=== PATIENT | male | born 1985 | race Caucasian/White ===

== ENCOUNTER 2020-09-04 21:08 | Inpatient (IN) | payer MEDICAID ==
[~2020-09-04] VITALS: Ht 185.4 cm; Wt 180.5 kg
[2020-09-04 21:57] LABS: BASOPHILS # (AUTO) 0.1 X10'3 (0-0.2); BASOPHILS % (AUTO) 0.8 % (0-1); EOSINOPHILS # (AUTO) 0.1 X10'3 (0-0.9); EOSINOPHILS % (AUTO) 0.6 % (0-6); HEMATOCRIT 43.5 % (42.0-52.0); HEMOGLOBIN 15.1 g/dl (14.0-17.9); LYMPHOCYTES # (AUTO) 1.5 X10'3 (1.1-4.8); LYMPHOCYTES % (AUTO) 14.3 % (21-51); MEAN CORPUSCULAR HEMOGLOBIN 28.5 PG (27.0-31.0); MEAN CORPUSCULAR HGB CONC 34.7 g/dL (33.0-36.5); MEAN CORPUSCULAR VOLUME 82.1 FL (78-98); MEAN PLATELET VOLUME 7.3 FL (7.4-10.4); MONOCYTES # (AUTO) 0.8 X10'3 (0-0.9); MONOCYTES % (AUTO) 7.7 % (2-12); NEUTROPHILS # (AUTO) 8.1 X10'3 (1.8-7.7); NEUTROPHILS % (AUTO) 76.6 % (42-75); PLATELET COUNT 245 X10'3 (140-440); RED CELL DISTRIBUTION WIDTH 13.1 % (11.5-14.5); WHITE BLOOD COUNT 10.5 X10'3 (4.5-11.0)
[2020-09-04 21:58] LABS: CLARITY,URINE CLEAR (Clear); COLOR,URINE YELLOW (Yellow); GLUCOSE, URINE NEGATIVE (Neg); KETONES,URINE NEGATIVE (Neg); LEUKOCYTE ESTERASE ,URINE NEGATIVE (Neg); NITRITES, URINE NEGATIVE (Neg); OCCULT BLOOD,URINE NEGATIVE (Neg); PH,URINE 6.5 (4.8-8.0); PROTEIN,URINE NEGATIVE (Neg); UROBILINOGEN,URINE 0.2 E.U/dL (0.2-1.0)
[2020-09-04 22:03] LABS: UA COLLECTION TYPE CLN CATCH MIDSTREAM
[2020-09-04 22:08] LABS: ALANINE AMINOTRANSFERASE 42 U/L (12-78); ALBUMIN 4.1 G/DL (3.4-5.0); ALBUMIN/GLOBULIN RATIO 1.1 (1.1-1.5); ALKALINE PHOSPHATASE 60 IU/L (46-116); ANION GAP 7 (8-16); ASPARTATE AMINO TRANSFERASE 17 U/L (10-37); BILIRUBIN,TOTAL 0.5 MG/DL (0.1-1.0); BLOOD UREA NITROGEN 10 MG/DL (7-18); BUN/CREATININE RATIO 9.9 (5.4-32.0); CALCIUM 9.1 MG/DL (8.5-10.1); CHLORIDE 102 MMOL/L (99-107); CREATININE 1.01 MG/DL (0.60-1.10); GLUCOSE 98 MG/DL (70-104); LIPASE 92 U/L (73-393); SODIUM 137 MMOL/L (135-145); eGFR 84 ML/MIN
[2020-09-05] MEDS ORDERED: ketorolac trometh. 30mg/ml inj. IM ONE (02:25)
[2020-09-05] MEDS ORDERED: HYDROcodone/acetaminophen 10/325mg tab PO ONE (02:25)
[2020-09-05] MEDS ORDERED: metroNIDAZOLE-Flagyl 500mg/NS 100 ML IV STA (02:47)
[2020-09-05] MEDS ORDERED: levoFLOXACIN-Levaquin 750MG/D5 150 ML IV ONE (02:50)
[2020-09-05] MEDS ORDERED: RIVA20TA PO (03:22)
[2020-09-05] MEDS ORDERED: ROSU20TA2 PO (03:22)
[2020-09-05] MEDS ORDERED: acetaminophen 650mg rectal suppository RC PRN (04:25)
[2020-09-05] MEDS ORDERED: diphenhydrAMINE 25mg capsule PO PRN (04:25)
[2020-09-05] MEDS ORDERED: acetaminophen 325mg tablet PO PRN ×2 (04:25)
[2020-09-05] MEDS ORDERED: diphenhydrAMINE 50 mg/ml inj IV PRN (04:25)
[2020-09-05] MEDS ORDERED: bisacodyl 10mg suppository rectal RC PRN (04:25)
[2020-09-05] MEDS ORDERED: magnesium hydroxide 30ml (MOM) UD suspension PO PRN (04:25)
[2020-09-05] MEDS ORDERED: HYDROmorphone inj. 0.5 MG/0.5 ML DISP.SYRIN IV PRN (04:25)
[2020-09-05] MEDS ORDERED: morphine 2 MG/ML inj. syringe IV PRN (04:25)
[2020-09-05] MEDS ORDERED: HYDROcodone/acetaminophen 10/325mg tab PO PRN (04:25)
[2020-09-05] MEDS ORDERED: ondansetron 4mg rapidly disintigrating tab PO PRN (04:25)
[2020-09-05] MEDS ORDERED: mag hydrox/Alum hydrox/simeth 30ml oral suspension PO PRN (04:25)
--- NOTE | 2020-09-05 05:09 | NUR ---
Patient resting comfortably on gurney, pending admission
--- NOTE | 2020-09-05 06:53 | NUR ---
Patient in room ED 6. I have received report from SKYLER Casarez and had the opportunity to ask questions and assume patient care.
[2020-09-05] MEDS: normal saline 1000ml 1,000 ML IV SCH ×3 (06:54→23:34)
[2020-09-05 07:00] VITALS: BP 148/82
--- NOTE | 2020-09-05 07:27 | NUR ---
Pt sent up by ER staff via wheelchair. Able to transfer with minimal assist to bed. Vital signs obtained. Physical assessment completed, 2RN skin check completed.
[2020-09-05] MEDS: docusate sod 100mg capsule PO SCH ×2 (07:48→19:32)
[2020-09-05] MEDS: atorvastatin 20mg tablet PO SCH (07:48)
[2020-09-05] MEDS: heparin, porcine 5000 units/ml vial SQ SCH ×3 (07:49→23:39)
[2020-09-05] MEDS: pantoprazole 40 MG vial IV SCH (07:49)
[2020-09-05] MEDS: HYDROcodone/acetaminophen 5mg/325mg tablet PO PRN ×3 (07:52→23:34)
[2020-09-05 07:57] LABS: HEMOGLOBIN A1C 5.7 % (4.5-6.2)
[2020-09-05 08:00] LABS: MAGNESIUM 2.1 MG/DL (1.5-2.4)
[2020-09-05] MEDS ORDERED: magnesium Cl slow-release 64mg tablet PO PRN (08:00)
[2020-09-05] MEDS ORDERED: potassium Cl 20 mEq SR tablet PO PRN ×2 (08:00)
[2020-09-05] MEDS ORDERED: potassium Cl 40MEQ/1/2NS 520ml 520 ML IV PRN (08:00)
[2020-09-05] MEDS ORDERED: magnesium 4gm in 100ml NS 100 ML IV PRN (08:00)
[2020-09-05] MEDS: ondansetron/PF 4mg/2ml inj IV PRN (08:54)
[2020-09-05] MEDS: piperacillin/tazo 3.375gm/50ml 50 ML IV SCH ×3 (08:58→23:46)
[2020-09-05] MEDS: K and/or MAG REPLACEMENT MC SCH ×2 (08:58→19:28)
[2020-09-05] MEDS: morphine 2 MG/ML inj. syringe IV PRN (09:05)
[2020-09-05 11:00] VITALS: BP 131/74
--- NOTE | 2020-09-05 15:28 | NUR ---
Nutrition Consult "Calorie Count": Per MD note calorie count for ordered for "calorie counting and restriction." Likely consult placed r/t pt BMI 39. Pt admit DX localized sigmoid diverticulitis w/ perforation currently NPO w/ ice chips per EMR. Excessive kcal restriction not indicated at this time given acute care increased needs and not appropriate w/ pt NPO status. Addendum: 09/05/20 at [address] Amended: Links added.
--- NOTE | 2020-09-05 16:40 | NUR ---
Brother at bedside. Will take wallet and clothes home to wash for him to wear when discharged.
[2020-09-05 18:00] VITALS: BP 145/86
--- NOTE | 2020-09-05 18:15 | NUR ---
Patient in room [facility]. I have received report from Blanka HOLLAND and Denia HOLLAND and had the opportunity to ask questions and assume patient care.
--- NOTE | 2020-09-05 18:16 | NUR ---
Problems reprioritized. Patient report given, questions answered & plan of care reviewed with SKYLER Boucher.
[2020-09-05] MEDS: lactobacillus rhamnosus 10,000 MMU CELLS/CAPSULE PO SCH (19:32)
[2020-09-05] MEDS ORDERED: temazepam 15mg capsule PO PRN (21:00)
[2020-09-06 00:20] VITALS: BP 144/80
[2020-09-06 05:59] LABS: BASOPHILS % (AUTO) 0.4 % (0-1); EOSINOPHILS # (AUTO) 0.1 X10'3 (0-0.9); HEMATOCRIT 42.5 % (42.0-52.0); HEMOGLOBIN 14.4 g/dl (14.0-17.9); LYMPHOCYTES # (AUTO) 1.5 X10'3 (1.1-4.8); LYMPHOCYTES % (AUTO) 17.3 % (21-51); MEAN CORPUSCULAR HEMOGLOBIN 28.4 PG (27.0-31.0); MEAN CORPUSCULAR HGB CONC 33.9 g/dL (33.0-36.5); MEAN CORPUSCULAR VOLUME 83.9 FL (78-98); MEAN PLATELET VOLUME 7.4 FL (7.4-10.4); MONOCYTES # (AUTO) 0.7 X10'3 (0-0.9); MONOCYTES % (AUTO) 8.3 % (2-12); NEUTROPHILS # (AUTO) 6.3 X10'3 (1.8-7.7); PLATELET COUNT 233 X10'3 (140-440); RED BLOOD COUNT 5.07 X10'6 (4.70-6.10); WHITE BLOOD COUNT 8.7 X10'3 (4.5-11.0)
[2020-09-06 06:12] LABS: ALANINE AMINOTRANSFERASE 34 U/L (12-78); ALBUMIN 3.3 G/DL (3.4-5.0); ALBUMIN/GLOBULIN RATIO 0.8 (1.1-1.5); ALKALINE PHOSPHATASE 55 IU/L (46-116); ANION GAP 11 (8-16); ASPARTATE AMINO TRANSFERASE 10 U/L (10-37); BILIRUBIN,TOTAL 0.9 MG/DL (0.1-1.0); BLOOD UREA NITROGEN 9 MG/DL (7-18); BUN/CREATININE RATIO 8.3 (5.4-32.0); CALCIUM 8.6 MG/DL (8.5-10.1); CHLORIDE 105 MMOL/L (99-107); CHOL/HDL RATIO 2.6 (0.00-4.99); CHOLESTEROL 97 MG/DL (0-200); CREATININE 1.09 MG/DL (0.60-1.10); GLUCOSE 97 MG/DL (70-104); HDL CHOLESTEROL 37 MG/DL (35-60); LDL CHOLESTEROL 44 MG/DL (50-100); POTASSIUM 3.7 MMOL/L (3.5-5.1); SODIUM 142 MMOL/L (135-145); TOTAL CARBON DIOXIDE 26.3 MMOL/L (24-32); TOTAL PROTEIN 7.4 G/DL (6.4-8.2); TRIGLYCERIDES 81 MG/DL (20-135); eGFR 77 ML/MIN
--- NOTE | 2020-09-06 06:17 | NUR ---
Patient in room [facility]. I have received report from SKYLER Boucher and had the opportunity to ask questions and assume patient care.
--- NOTE | 2020-09-06 06:40 | NUR ---
Problems reprioritized. Patient report given, questions answered & plan of care reviewed with Blanka HOLLAND and Denia HOLLAND.
[2020-09-06] MEDS: HYDROcodone/acetaminophen 5mg/325mg tablet PO PRN (06:42)
[2020-09-06 06:46] VITALS: BP 148/90
[2020-09-06] MEDS: piperacillin/tazo 3.375gm/50ml 50 ML IV SCH ×3 (07:07→23:57)
[2020-09-06] MEDS: lactobacillus rhamnosus 10,000 MMU CELLS/CAPSULE PO SCH ×2 (07:07→19:45)
[2020-09-06] MEDS: atorvastatin 20mg tablet PO SCH (07:07)
[2020-09-06] MEDS: pantoprazole 40 MG vial IV SCH (07:08)
[2020-09-06] MEDS: docusate sod 100mg capsule PO SCH ×2 (07:09→19:45)
[2020-09-06] MEDS: heparin, porcine 5000 units/ml vial SQ SCH ×2 (07:09→15:05)
[2020-09-06] MEDS: K and/or MAG REPLACEMENT MC SCH ×2 (07:12→19:46)
[2020-09-06 11:00] VITALS: BP 153/53
[2020-09-06] MEDS: normal saline 1000ml 1,000 ML IV SCH ×2 (11:11→19:39)
[2020-09-06] MEDS: ondansetron/PF 4mg/2ml inj IV PRN (14:54)
[2020-09-06] MEDS ORDERED: rivaroxaban 20mg tablet PO ONE (15:15)
--- NOTE | 2020-09-06 16:49 | NUR ---
Pt had a loose stool today. Advanced pt diet to clear liquid diet.
--- NOTE | 2020-09-06 18:18 | NUR ---
Patient in room [facility]. I have received report from SKYLER Martinez and had the opportunity to ask questions and assume patient care.
--- NOTE | 2020-09-06 18:20 | NUR ---
Problems reprioritized. Patient report given, questions answered & plan of care reviewed with SKYLER Martinez.
[2020-09-06 20:00] VITALS: BP 158/93
[2020-09-07 06:12] LABS: BASOPHILS # (AUTO) 0.1 X10'3 (0-0.2); BASOPHILS % (AUTO) 0.6 % (0-1); EOSINOPHILS # (AUTO) 0.2 X10'3 (0-0.9); EOSINOPHILS % (AUTO) 2.1 % (0-6); HEMATOCRIT 39.1 % (42.0-52.0); HEMOGLOBIN 13.3 g/dl (14.0-17.9); LYMPHOCYTES # (AUTO) 1.4 X10'3 (1.1-4.8); MEAN CORPUSCULAR HEMOGLOBIN 28.2 PG (27.0-31.0); MEAN CORPUSCULAR VOLUME 82.9 FL (78-98); MEAN PLATELET VOLUME 7.6 FL (7.4-10.4); MONOCYTES # (AUTO) 0.7 X10'3 (0-0.9); MONOCYTES % (AUTO) 8.8 % (2-12); NEUTROPHILS # (AUTO) 5.5 X10'3 (1.8-7.7); NEUTROPHILS % (AUTO) 70.5 % (42-75); PLATELET COUNT 216 X10'3 (140-440); RED BLOOD COUNT 4.72 X10'6 (4.70-6.10); RED CELL DISTRIBUTION WIDTH 12.9 % (11.5-14.5); WHITE BLOOD COUNT 7.8 X10'3 (4.5-11.0)
[2020-09-07 06:13] LABS: ALANINE AMINOTRANSFERASE 19 U/L (12-78); ALBUMIN 2.9 G/DL (3.4-5.0); ALBUMIN/GLOBULIN RATIO 0.8 (1.1-1.5); ALKALINE PHOSPHATASE 48 IU/L (46-116); ANION GAP 9 (8-16); ASPARTATE AMINO TRANSFERASE 11 U/L (10-37); BILIRUBIN,TOTAL 0.6 MG/DL (0.1-1.0); BLOOD UREA NITROGEN 8 MG/DL (7-18); BUN/CREATININE RATIO 8.8 (5.4-32.0); CALCIUM 8.3 MG/DL (8.5-10.1); CHLORIDE 105 MMOL/L (99-107); CREATININE 0.91 MG/DL (0.60-1.10); GLUCOSE 91 MG/DL (70-104); POTASSIUM 3.9 MMOL/L (3.5-5.1); SODIUM 139 MMOL/L (135-145); TOTAL CARBON DIOXIDE 24.6 MMOL/L (24-32); TOTAL PROTEIN 6.7 G/DL (6.4-8.2); eGFR > 90 ML/MIN
--- NOTE | 2020-09-07 06:30 | NUR ---
Patient in room [facility]. I have received report from SKYLER Martinez and had the opportunity to ask questions and assume patient care.
--- NOTE | 2020-09-07 06:50 | NUR ---
Problems reprioritized. Patient report given, questions answered & plan of care reviewed with Sarah. Addendum: 09/07/20 at 0651 by Sukhi Parra RN Amended: Links added.
[2020-09-07 07:00] VITALS: BP 129/72
[2020-09-07] MEDS: K and/or MAG REPLACEMENT MC SCH ×2 (08:00→20:00)
[2020-09-07] MEDS: docusate sod 100mg capsule PO SCH ×2 (08:00→20:00)
[2020-09-07] MEDS: piperacillin/tazo 3.375gm/50ml 50 ML IV SCH ×2 (08:43→17:00)
[2020-09-07] MEDS: lactobacillus rhamnosus 10,000 MMU CELLS/CAPSULE PO SCH ×2 (08:43→20:38)
[2020-09-07] MEDS: atorvastatin 20mg tablet PO SCH (08:43)
[2020-09-07] MEDS: normal saline 1000ml 1,000 ML IV SCH ×3 (08:44→17:03)
[2020-09-07] MEDS: pantoprazole 40mg Tablet.DR PO SCH (08:45)
[2020-09-07] MEDS: HYDROcodone/acetaminophen 5mg/325mg tablet PO PRN ×2 (08:51→19:04)
[2020-09-07] MEDS: rivaroxaban 20mg tablet PO SCH (08:53)
[2020-09-07 11:00] VITALS: BP 124/58
--- NOTE | 2020-09-07 18:36 | NUR ---
Problems reprioritized. Patient report given, questions answered & plan of care reviewed with SKYLER Poole.
[2020-09-07 20:00] VITALS: BP 160/84
[2020-09-08] VITALS: BP 137/72
[2020-09-08] MEDS: HYDROcodone/acetaminophen 5mg/325mg tablet PO PRN ×2 (00:14→19:49)
[2020-09-08] MEDS: piperacillin/tazo 3.375gm/50ml 50 ML IV SCH ×2 (00:15→07:50)
[2020-09-08] MEDS: normal saline 1000ml 1,000 ML IV SCH ×2 (05:12→15:24)
[2020-09-08 06:09] LABS: BASOPHILS % (AUTO) 0.4 % (0-1); EOSINOPHILS # (AUTO) 0.2 X10'3 (0-0.9); EOSINOPHILS % (AUTO) 2.3 % (0-6); HEMATOCRIT 40.4 % (42.0-52.0); HEMOGLOBIN 13.9 g/dl (14.0-17.9); LYMPHOCYTES # (AUTO) 1.3 X10'3 (1.1-4.8); LYMPHOCYTES % (AUTO) 17.4 % (21-51); MEAN CORPUSCULAR HEMOGLOBIN 28.5 PG (27.0-31.0); MEAN CORPUSCULAR HGB CONC 34.3 g/dL (33.0-36.5); MEAN CORPUSCULAR VOLUME 83.1 FL (78-98); MEAN PLATELET VOLUME 7.3 FL (7.4-10.4); MONOCYTES # (AUTO) 0.6 X10'3 (0-0.9); MONOCYTES % (AUTO) 7.7 % (2-12); NEUTROPHILS # (AUTO) 5.5 X10'3 (1.8-7.7); NEUTROPHILS % (AUTO) 72.2 % (42-75); PLATELET COUNT 260 X10'3 (140-440); RED BLOOD COUNT 4.86 X10'6 (4.70-6.10); WHITE BLOOD COUNT 7.7 X10'3 (4.5-11.0)
[2020-09-08 06:34] LABS: ALANINE AMINOTRANSFERASE 28 U/L (12-78); ALBUMIN/GLOBULIN RATIO 0.7 (1.1-1.5); ALKALINE PHOSPHATASE 57 IU/L (46-116); ANION GAP 11 (8-16); ASPARTATE AMINO TRANSFERASE 14 U/L (10-37); BILIRUBIN,TOTAL 0.5 MG/DL (0.1-1.0); BLOOD UREA NITROGEN 7 MG/DL (7-18); BUN/CREATININE RATIO 7.5 (5.4-32.0); CALCIUM 8.5 MG/DL (8.5-10.1); CHLORIDE 104 MMOL/L (99-107); CREATININE 0.93 MG/DL (0.60-1.10); GLUCOSE 84 MG/DL (70-104); POTASSIUM 3.9 MMOL/L (3.5-5.1); SODIUM 141 MMOL/L (135-145); TOTAL PROTEIN 7.3 G/DL (6.4-8.2); eGFR > 90 ML/MIN
[2020-09-08 06:44] VITALS: BP 132/64
[2020-09-08] MEDS ORDERED: LEVO500T89 PO (07:43)
[2020-09-08] MEDS ORDERED: METR500T PO (07:44)
[2020-09-08] MEDS: atorvastatin 20mg tablet PO SCH (07:52)
[2020-09-08] MEDS: rivaroxaban 20mg tablet PO SCH (07:52)
[2020-09-08] MEDS: pantoprazole 40mg Tablet.DR PO SCH (07:52)
[2020-09-08] MEDS: lactobacillus rhamnosus 10,000 MMU CELLS/CAPSULE PO SCH ×2 (07:52→19:48)
[2020-09-08] MEDS: K and/or MAG REPLACEMENT MC SCH ×2 (08:00→20:00)
[2020-09-08] MEDS: docusate sod 100mg capsule PO SCH ×2 (08:00→19:22)
--- NOTE | 2020-09-08 08:05 | NUR ---
PAGER ID: [phone] MESSAGE: Ceci-Surg [id number] Re: Mathew LlanesA patients pharmacy in computer,. have not seen Bowel movement put Hat in bathroom for sample
--- NOTE | 2020-09-08 10:44 | NUR ---
PAGER ID: [phone] MESSAGE: Ceci Surg [id number] Re: Mathew Llanes A Patient states there is no way he can go home on Tylenol the pain is to bad can you please call
[2020-09-08 11:00] VITALS: BP 150/93
--- NOTE | 2020-09-08 11:45 | NUR ---
PAGER ID: [phone] MESSAGE: Ceci-Surg [id number] Re: Mathew had a liquid stool. automotive electrician helper sent sample do you want us to run a cdiff or discard please call
--- NOTE | 2020-09-08 16:11 | NUR ---
PAGER ID: [phone] MESSAGE: Ceci-Surg [id number] Re: [id number] Mathew please call re: Dr Marquez wants Dr Brown to see patient before discharge. Awaiting Dr Brown
[2020-09-08 16:23] VITALS: BP 148/100
[2020-09-08 18:00] VITALS: BP 170/88
--- NOTE | 2020-09-08 18:30 | NUR ---
Patient in room [facility]. I have received report from Ceci HOLLAND and had the opportunity to ask questions and assume patient care.
--- NOTE | 2020-09-08 18:45 | NUR ---
Problems reprioritized. Patient report given, questions answered & plan of care reviewed with Deborah HOLLAND.
[2020-09-08] MEDS: ringers solution, lacted 1,000 ML IV SCH (21:21)
[2020-09-08 23:31] VITALS: BP 159/80
[2020-09-08] MEDS: piperacillin/tazo 4.5gm/100ml 100 ML IV SCH (23:42)
[2020-09-09] MEDS: morphine 2 MG/ML inj. syringe IV PRN ×2 (00:34→08:45)
[2020-09-09] MEDS: ringers solution, lacted 1,000 ML IV SCH ×3 (04:05→17:11)
--- NOTE | 2020-09-09 06:21 | NUR ---
Problems reprioritized. Patient report given, questions answered & plan of care reviewed with Sarah HOLLAND.
--- NOTE | 2020-09-09 06:49 | NUR ---
Patient in room [facility]. I have received report from SKYLER Cabrera and had the opportunity to ask questions and assume patient care.
[2020-09-09 07:00] VITALS: BP 139/75
[2020-09-09] MEDS: K and/or MAG REPLACEMENT MC SCH ×2 (08:00→20:00)
[2020-09-09] MEDS: docusate sod 100mg capsule PO SCH ×2 (08:00→20:00)
[2020-09-09 08:29] LABS: BASOPHILS # (AUTO) 0.1 X10'3 (0-0.2); BASOPHILS % (AUTO) 0.6 % (0-1); EOSINOPHILS # (AUTO) 0.1 X10'3 (0-0.9); EOSINOPHILS % (AUTO) 1.4 % (0-6); HEMATOCRIT 40.6 % (42.0-52.0); HEMOGLOBIN 14.2 g/dl (14.0-17.9); LYMPHOCYTES # (AUTO) 1.2 X10'3 (1.1-4.8); LYMPHOCYTES % (AUTO) 12.7 % (21-51); MEAN CORPUSCULAR HEMOGLOBIN 28.6 PG (27.0-31.0); MEAN CORPUSCULAR HGB CONC 34.9 g/dL (33.0-36.5); MEAN CORPUSCULAR VOLUME 81.9 FL (78-98); MEAN PLATELET VOLUME 6.8 FL (7.4-10.4); MONOCYTES # (AUTO) 0.7 X10'3 (0-0.9); MONOCYTES % (AUTO) 7.6 % (2-12); NEUTROPHILS # (AUTO) 7.2 X10'3 (1.8-7.7); NEUTROPHILS % (AUTO) 77.7 % (42-75); PLATELET COUNT 284 X10'3 (140-440); RED BLOOD COUNT 4.96 X10'6 (4.70-6.10); RED CELL DISTRIBUTION WIDTH 12.9 % (11.5-14.5); WHITE BLOOD COUNT 9.2 X10'3 (4.5-11.0)
[2020-09-09] MEDS: pantoprazole 40mg Tablet.DR PO SCH (08:31)
[2020-09-09] MEDS: rivaroxaban 20mg tablet PO SCH (08:32)
[2020-09-09] MEDS: piperacillin/tazo 4.5gm/100ml 100 ML IV SCH (08:32)
[2020-09-09] MEDS: lactobacillus rhamnosus 10,000 MMU CELLS/CAPSULE PO SCH ×2 (08:32→21:25)
[2020-09-09] MEDS: atorvastatin 20mg tablet PO SCH (08:32)
[2020-09-09 08:59] LABS: ALANINE AMINOTRANSFERASE 35 U/L (12-78); ALBUMIN 3.2 G/DL (3.4-5.0); ALBUMIN/GLOBULIN RATIO 0.7 (1.1-1.5); ALKALINE PHOSPHATASE 54 IU/L (46-116); ANION GAP 12 (8-16); ASPARTATE AMINO TRANSFERASE 22 U/L (10-37); BILIRUBIN,TOTAL 0.5 MG/DL (0.1-1.0); BLOOD UREA NITROGEN 5 MG/DL (7-18); BUN/CREATININE RATIO 5.7 (5.4-32.0); CALCIUM 8.8 MG/DL (8.5-10.1); CHLORIDE 101 MMOL/L (99-107); CREATININE 0.87 MG/DL (0.60-1.10); GLUCOSE 106 MG/DL (70-104); POTASSIUM 3.5 MMOL/L (3.5-5.1); SODIUM 138 MMOL/L (135-145); TOTAL PROTEIN 7.7 G/DL (6.4-8.2); eGFR > 90 ML/MIN
[2020-09-09 11:00] VITALS: BP 143/93
[2020-09-09] MEDS: levoFLOXACIN-Levaquin 500mg/D5 100 ML IV SCH (11:22)
[2020-09-09] MEDS: metroNIDAZOLE-Flagyl 500mg/NS 100 ML IV SCH (17:11)
--- NOTE | 2020-09-09 18:57 | NUR ---
Problems reprioritized. Patient report given, questions answered & plan of care reviewed with edwin RN.
[2020-09-09 19:30] VITALS: BP 153/90
[2020-09-10] VITALS: BP 144/71
[2020-09-10] MEDS: ringers solution, lacted 1,000 ML IV SCH ×3 (00:13→12:45)
[2020-09-10] MEDS: metroNIDAZOLE-Flagyl 500mg/NS 100 ML IV SCH ×2 (00:13→09:46)
[2020-09-10 06:23] LABS: ALANINE AMINOTRANSFERASE 38 U/L (12-78); ALBUMIN 2.7 G/DL (3.4-5.0); ALBUMIN/GLOBULIN RATIO 0.6 (1.1-1.5); ALKALINE PHOSPHATASE 48 IU/L (46-116); ANION GAP 9 (8-16); ASPARTATE AMINO TRANSFERASE 22 U/L (10-37); BILIRUBIN,TOTAL 0.3 MG/DL (0.1-1.0); BLOOD UREA NITROGEN 4 MG/DL (7-18); BUN/CREATININE RATIO 4.1 (5.4-32.0); CALCIUM 8.8 MG/DL (8.5-10.1); CHLORIDE 105 MMOL/L (99-107); CREATININE 0.98 MG/DL (0.60-1.10); GLUCOSE 100 MG/DL (70-104); POTASSIUM 3.8 MMOL/L (3.5-5.1); SODIUM 144 MMOL/L (135-145); TOTAL CARBON DIOXIDE 30.5 MMOL/L (24-32); TOTAL PROTEIN 6.9 G/DL (6.4-8.2); eGFR 87 ML/MIN
[2020-09-10 06:46] LABS: BASOPHILS % (AUTO) 0.5 % (0-1); EOSINOPHILS # (AUTO) 0.2 X10'3 (0-0.9); EOSINOPHILS % (AUTO) 2.5 % (0-6); HEMATOCRIT 38.8 % (42.0-52.0); HEMOGLOBIN 13.2 g/dl (14.0-17.9); LYMPHOCYTES # (AUTO) 1.6 X10'3 (1.1-4.8); LYMPHOCYTES % (AUTO) 18.8 % (21-51); MEAN CORPUSCULAR HEMOGLOBIN 28.3 PG (27.0-31.0); MEAN CORPUSCULAR HGB CONC 34.2 g/dL (33.0-36.5); MEAN CORPUSCULAR VOLUME 82.9 FL (78-98); MEAN PLATELET VOLUME 7.3 FL (7.4-10.4); MONOCYTES # (AUTO) 0.7 X10'3 (0-0.9); MONOCYTES % (AUTO) 8.5 % (2-12); NEUTROPHILS # (AUTO) 5.8 X10'3 (1.8-7.7); NEUTROPHILS % (AUTO) 69.7 % (42-75); PLATELET COUNT 271 X10'3 (140-440); RED BLOOD COUNT 4.67 X10'6 (4.70-6.10); RED CELL DISTRIBUTION WIDTH 12.9 % (11.5-14.5); WHITE BLOOD COUNT 8.3 X10'3 (4.5-11.0)
--- NOTE | 2020-09-10 07:00 | NUR ---
Patient in room [facility]. I have received report from Pat RN and had the opportunity to ask questions and assume patient care.
[2020-09-10 08:00] VITALS: BP 142/81
[2020-09-10] MEDS: K and/or MAG REPLACEMENT MC SCH (08:00)
[2020-09-10] MEDS: pantoprazole 40mg Tablet.DR PO SCH (09:45)
[2020-09-10] MEDS: docusate sod 100mg capsule PO SCH (09:45)
[2020-09-10] MEDS: lactobacillus rhamnosus 10,000 MMU CELLS/CAPSULE PO SCH (09:45)
[2020-09-10] MEDS: rivaroxaban 20mg tablet PO SCH (09:45)
[2020-09-10] MEDS: atorvastatin 20mg tablet PO SCH (09:46)
[2020-09-10] MEDS: levoFLOXACIN-Levaquin 500mg/D5 100 ML IV SCH (09:47)
[2020-09-10 12:00] VITALS: BP 126/79
--- NOTE | 2020-09-10 15:05 | NUR ---
Pt Dc to home with his brother and mom. Pt is A & O x4 and in no apparent distress. Pt verbalizes understanding of all DC orders. Pt understands the importance of following up with Dr Wahl in [address] Rawls. Pt has numbers and states he will call Saturday to make an appointment. Pt aware of the s & s to look for and will come back in if he experience same symptoms. Pt will take all antibiotics x2 and will make sure will finish all of it. Pt will also find a PCP to keep track of his care and changes.
== END 2020-09-10 15:05 | disposition home or self-care (01) | DRG 244 ==
LOC: ER 21:08 → ED HOLD 09-05 04:25 → SUR 3N 09-05 07:29
PROVIDERS: ADMIT Family Medicine; ATTEND Family Medicine
DX: K57.20 Diverticulitis of large intestine with perforation and abscess without bleeding (principal); E66.01 Morbid (severe) obesity due to excess calories; I48.91 Unspecified atrial fibrillation; E78.5 Hyperlipidemia, unspecified; E86.0 Dehydration; Z68.43 Body mass index [BMI] 50.0-59.9, adult; I10 Essential (primary) hypertension; Z79.01 Long term (current) use of anticoagulants; I70.8 Atherosclerosis of other arteries; Z86.73 Personal history of transient ischemic attack (TIA), and cerebral infarction without residual deficits
CPT/HCPCS: 36415; 74176; 80053; 80061; 81003; 83036; 83605; 83690; 83735; 83880; 84100; 84145; 84443; 85025; 87040; 87081; 96365; 96372; 99285; C9113; G0378; J1644; J1885; J1956; J2270; J2405; J2543; J3490; J7030; J7120

== ENCOUNTER 2021-06-06 08:32 | Emergency (ER) | payer MEDICAID ==
[~2021-06-06] VITALS: Ht 182.9 cm; Wt 106.8 kg
[~2021-06-06 08:32] MED LIST: RIVA20TA PO; ROSU20TA2 PO
[2021-06-06 08:35] VITALS: BP 163/88
[2021-06-06] MEDS ORDERED: proparacaine 0.5% ophthalmic drops 15ml EACHEYE ONE (09:05)
[2021-06-06] MEDS ORDERED: TOBR5DRO57 RIGHTEYE (09:39)
== END 2021-06-06 09:51 | disposition home or self-care (01) ==
LOC: ER 08:33
DX: H44.71 Retained (nonmagnetic) (old) foreign body in anterior chamber (principal); I48.91 Unspecified atrial fibrillation; Z79.2 Long term (current) use of antibiotics; Z79.899 Other long term (current) drug therapy; Z86.73 Personal history of transient ischemic attack (TIA), and cerebral infarction without residual deficits; Z87.19 Personal history of other diseases of the digestive system
CPT/HCPCS: 65205; 99284

== ENCOUNTER 2023-01-14 14:13 | Emergency (ER) | payer MEDICAID ==
[~2023-01-14] VITALS: Ht 185.4 cm; Wt 122.7 kg
[2023-01-14] MEDS ORDERED: ketorolac trometh. 30mg/ml inj. IM ONE (16:20)
[2023-01-14 16:40] VITALS: BP 148/74; PULSE 78; RESP 16; TEMP 97.9; O2SAT 97
== END 2023-01-14 16:41 | disposition home or self-care (01) ==
LOC: ER 14:14
DX: S83.8X2A Sprain of other specified parts of left knee, initial encounter (principal); X58.XXXA Exposure to other specified factors, initial encounter; Y93.89 Activity, other specified; Y92.89 Other specified places as the place of occurrence of the external cause; Y99.8 Other external cause status
CPT/HCPCS: 73564; 96372; 99283; J1885